=== PATIENT | female | born 1970 | race Caucasian/White ===

== ENCOUNTER 2024-02-06 22:02 | Emergency (ER) | payer SELFPAY ==
[~2024-02-06] VITALS: Ht 170.2 cm; Wt 65.0 kg
[2024-02-06 22:09] VITALS: O2SAT 100
[2024-02-06] MEDS ORDERED: IBUP-2029 MT (23:40)
[2024-02-06] MEDS ORDERED: METH-653 MT (23:40)
[2024-02-06] MEDS: IBUPROFEN 600MG TABLET PO ONE (23:45)
[2024-02-07] VITALS: BP 121/91; PULSE 82; RESP 20; TEMP 98.4
== END 2024-02-07 | disposition home or self-care (01) ==
LOC: ER 22:02
DX: S09.90XA Unspecified injury of head, initial encounter (principal); Y08.89XA Assault by other specified means, initial encounter; Y93.89 Activity, other specified; Y92.89 Other specified places as the place of occurrence of the external cause; Y99.8 Other external cause status
CPT/HCPCS: 99283